=== PATIENT | female | born 1985 | race Two or more races ===

== ENCOUNTER 2024-07-21 16:44 | Emergency (ER) | payer MEDICAID, SELFPAY ==
[2024-07-21 16:45] VITALS: BMI 24.9
--- NOTE | 2024-07-21 17:32 | XR_ITS ---
Examination: Breast ultrasound, unilateral, right Date and time of exam: July 22, 1999 2517.9 hours Indications: Right nipple pain redness and swelling 1 week, no family history breast cancer Technique: Real-time michael scale ultrasonographic imaging performed right breast including all 4 quadrants as well as nipple retroareolar and axillary region. Findings: 2:00 oval mass lobular margins 11 x 5 x 11 m Retroareolar hypoechoic area 2.8 x 1.1 x 1.8 cm most consistent with abscess Impression: BI-RADS Category 3: Probably benign findings Follow-up is needed to confirm resolution or decrease in size of retroareolar probable abscess and 2 exclude the possibility of inflammatory breast cancer 3-D 6 month follow-up is also needed to document stability of 2:00 nodule right breast described above
--- NOTE | 2024-07-21 17:32 | PD.EDRME ---
Rapid Medical Screening Exam RME Arrival date/time: 07/21/24 16:44 38-year-old female with no known medical history presents to the emergency room with a chief complaint of swelling and tenderness around the right breast areola. Patient states she was seen by her primary care provider an hour ago and was sent to the emergency room for an ultrasound. I have greeted and performed a focused initial assessment of this patient. A comprehensive ED assessment and evaluation of the patient, analysis of all test results, and completion of the medical decision making process will be conducted by additional ED providers. Chief Complaint: General Adult/Misc Complain Vital signs reviewed by provider: Yes
[2024-07-21 17:36] VITALS: BP 108/69; PULSE 76; RESP 16; TEMP 36.8; O2SAT 99
--- NOTE | 2024-07-21 20:05 | PD.EDSKIN ---
ED Skin Abcess FB-RME/HPI General Chief complaint: General Adult/Misc Complain Stated complaint: SENT BY ENDY L BREAST REDNESS/SWELLING/ PAIN Time Seen by Provider: 07/21/24 18:27 Arrival date/time: 07/21/24 16:44 RME / HPI RME / HPI narrative: 07/21/24 16:44 38-year-old female with no known medical history presents to the emergency room with a chief complaint of swelling and tenderness around the right breast areola. Patient states she was seen by her primary care provider an hour ago and was sent to the emergency room for an ultrasound. I have greeted and performed a focused initial assessment of this patient. A comprehensive ED assessment and evaluation of the patient, analysis of all test results, and completion of the medical decision making process will be conducted by additional ED providers. This section includes all my notes and documentations, including HPI, PE, and ED course. Gerardo Stone MD HPI: 38-year-old female here with right breast/nipple area with redness and swelling and warmth and pain. No fever or chills. No other complaints. ROS: All negative except as documented in HPI. Physical Exam: General: Alert and oriented. Eyes: Conjunctivae and lids clear. ENT: No nasal congestion. Neck: Supple. Lungs: No respiratory distress. Skin: Warm and dry. Neuro: Alert and oriented X 3. Right breast: Around the nipple area, there is a marble sized area of erythema and edema and calor and tenderness and equivocal fluctuancy. I reviewed all diagnostic test results. My review of the right breast ultrasound report is right mastitis/abscess. At this point, diagnoses include right mastitis. Treatment here included Augmentin. Recommended a trial of outpatient treatment. Based on my best medical judgment, made decision no further evaluation or treatment indicated at this time. Patient understands and agrees to the discharge instructions customized and printed, see below. Discharge Instructions from Dr. Stone printed for you: 1. After evaluation, you have infection of your right nipple/breast. 2. Augmentin to kill the germs causing the infection. 3. Prednisone to help decrease swelling and inflammation. 4. Apply warm compress throughout the day as much as possible to help the healing process. 5. See a private doctor on 07/23/24 for recheck and further care. Ask to review the official radiology report, to make sure you receive all necessary follow-ups and monitoring. Ask for help until you are completely better. If you don't get better, you may need incision and drainage of the infection. 6. Seek immediate medical care with fever, worsening, or with any concerns. Geradro Stone MD Related Data Home Medications ?Medication ?Instructions ?Recorded ?Confirmed ferrous sulfate 325 mg (65 mg 325 mg PO BID 08/25/21 08/25/21 iron) tablet (Iron (ferrous sulfate)) prenat.vits,laina,[id number] 1 tab PO QDAY 08/25/21 08/25/21 Previous Rx's ?Medication ?Instructions ?Recorded benzocaine 20 %-menthol 0.5 % 1 spray topical TID #56 pumps 08/25/21 topical aerosol (Dermoplast (with menthol)) docusate sodium 100 mg capsule 100 mg PO BID #60 caps 08/25/21 (Colace) ibuprofen 800 mg tablet 800 mg PO Q6H PRN pain #90 tabs 08/25/21 lanolin 50 % topical ointment 1 applic topical TID PRN skin 08/25/21 irritation #15 tubes amoxicillin 875 mg-potassium 1 tab PO BID #20 tabs 07/21/24 clavulanate 125 mg tablet prednisone 20 mg tablet 20 mg PO QDAY 5 days #5 tabs 07/21/24 Allergies Allergy/AdvReac Type Severity Reaction Status Date / Time No Known Allergies Allergy Verified 07/21/24 16:45 Course Quality Measures none Orders Category Date Time Status US breast RT complete Stat Exams 07/21/24 17:32 Completed Amoxicillin/Pot Clav 875 [Augmentin 875] Med 07/21/24 20:06 Discontinued 1 tab PO X1 ONE Vital Signs Vital signs: Vital Signs Temperature 98.2 F 07/21/24 17:36 Pulse Rate 76 07/21/24 17:36 Respiratory Rate 16 07/21/24 17:36 Blood Pressure 108/69 07/21/24 17:36 Pulse Oximetry (%) 99 07/21/24 17:36 Oxygen Delivery Method Room Air 07/21/24 17:36 Skin / Abscess / Foreign Body Patient data [facility] Clinical information provided by:: patient Social determinants that could affect healthcare access:: none Patient has the following chronic illnesses:: None How is presenting disease/condition affected by chronic disease/condition?: no chronic disease Evaluation data The following diagnostics were reviewed and interpreted by me:: radiology exam(s) Lab and/or radiology exams considered but not ordered:: None Interpretation Summary: Right mastitis Medications / Prescriptions Medications or Prescriptions considered but not ordered:: None Medication administrations:: Medication Administration History Discontinued Medications Amoxicillin/Clavulanate Potassium (Amoxicillin/Pot Clav 875 Tablet) 1 tab PO X1 ONE Stop: 07/21/24 20:07 Augmentin Consultations Consultation(s) initiated? (list below): No Diagnosis Skin/Abscess Differential Diagnosis: abscess of skin or subcutaneous tissue, cellulitis and contact dermatitis Most likely diagnosis given after review of the tests above:: Right mastitis Admission Indicated Admission indicated?: not indicated Explain why admission is indicated or not indicated:: There was no indication for admission. Admission Request Was there a request for admission?: No Disposition Plan Disposition Plan: Discharge Discharge Attestation Discharge Attestation: The patient and all family members were given an opportunity to ask questions and understood the discharge instructions. Discharge instructions specifically effects, indications for sooner follow up or return to the emergency department, and the expected course of current diagnosis. Patient condition: Stable Discharge Plan Plan Patient Disposition: HOME (Self Care) Prescriptions/Referrals Prescriptions/Med Rec: New prednisone 20 mg tablet 20 mg PO QDAY 5 Days Qty: 5 0RF Taper: Prednisone Taper 20 mg DAILY for 2 Days and 0 Hour 10 mg DAILY for 2 Days and 0 Hour 5 mg DAILY for 7 Days and 0 Hour amoxicillin-pot clavulanate 875-125 mg tablet 1 tab PO BID Qty: 20 0RF No Action ferrous sulfate [Iron (ferrous sulfate)] 325 mg (65 mg iron) Tablet 325 mg PO BID prenat.vits,laina,[id number] Tablet 1 tab PO QDAY Dermoplast (with menthol) 20-0.5 % aerosol 1 spray topical TID Qty: 56 0RF ibuprofen 800 mg tablet 800 mg PO Q6H MDD 4 PRN (Reason: pain) Qty: 90 0RF docusate sodium [Colace] 100 mg capsule 100 mg PO BID Qty: 60 0RF lanolin 50 % ointment 1 applic topical TID PRN (Reason: skin irritation) Qty: 15 0RF Referrals: No Primary/Family,Physician [Primary Care Provider] - In 1 week Problem List Clinical Impression: Acute mastitis of right breast Patient/Caregiver Discharge Instructions Discharge Activity: activity as tolerated Education Materials: ED Mastitis Additional Instructions: Discharge Instructions from Dr. Stone printed for you: 1. After evaluation, you have infection of your right nipple/breast. 2. Augmentin to kill the germs causing the infection. 3. Prednisone to help decrease swelling and inflammation. 4. Apply warm compress throughout the day as much as possible to help the healing process. 5. See a private doctor on 07/23/24 for recheck and further care. Ask to review the official radiology report, to make sure you receive all necessary follow-ups and monitoring. Ask for help until you are completely better. If you don't get better, you may need incision and drainage of the infection. 6. Seek immediate medical care with fever, worsening, or with any concerns. Print Language: Bengali Stand Alone Forms: Marlena Award Info., Patient Portal Info Letter
[2024-07-21] MEDS: AMOXICILLIN/POT CLAV 875 TABLET 1 TAB PO (20:43)
== END 2024-07-21 20:50 | disposition home or self-care (01) ==
PROVIDERS: Emergency Provider Emergency Medicine
DX: N61.0 Mastitis without abscess (principal)
CPT/HCPCS: 76641; 99284; A9270

== ENCOUNTER → 2024-11-20 | Outpatient (CLI) | payer MEDICAID, SELFPAY ==
--- NOTE | 2024-11-20 12:30 | XR_ITS ---
Examination: Complete OB ultrasound greater than 14 weeks Date and time of exam: November 20, 2024 1250 hours INDICATIONS: Supervision of normal second trimester . Findings: Viable intrauterine single fetus with single amniotic sac presentation cephalic Cardiac motion 137 BPM. Placenta anterior grade 1. Umbilical cord insertion 3 vessel seen. spine anterior Cervix 4.1 cm Right ovary 2.0 cm arterial flow Left ovary 2.1 cm arterial flow. Composite estimated gestational age based on BPD, head circumference, abdominal circumference, femur length is 23 weeks 3 days, estimated weight 638 g. Survey of intracranial anatomy, spinal anatomy, abdominal anatomy, four-chamber heart performed with no abnormalities identified. Impression: Viable intrauterine gestation cephalic presentation.
== END | disposition home or self-care (01) ==
LOC: CDIM 12:27
PROVIDERS: PCP Nurse Practitioner Family; Referring Provider Obstetrics & Gynecology; Visit Provider Obstetrics & Gynecology
DX: Z34.92 Encounter for supervision of normal pregnancy, unspecified, second trimester (principal)
CPT/HCPCS: 76805

== ENCOUNTER 2025-02-18 09:46 | Outpatient (AMB) | payer MEDICAID, SELFPAY ==
[2025-02-18 09:54] VITALS: BP 107/66; PULSE 92; RESP 18; TEMP 36.3; O2SAT 98; BMI 29.1
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
== END 2025-02-18 10:40 | disposition home or self-care (01) ==
LOC: HODSOBC 09:46
PROVIDERS: Supervising Provider Advanced Practice Midwife; Visit Provider Advanced Practice Midwife
DX: O09.523 Supervision of elderly multigravida, third trimester (principal); Z3A.35 35 weeks gestation of pregnancy
CPT/HCPCS: 99215; G0463

== ENCOUNTER 2025-03-05 08:45 | Outpatient (AMB) | payer MEDICAID, SELFPAY ==
[2025-03-05 09:00] VITALS: BP 106/72; PULSE 74; RESP 18; TEMP 36.1; O2SAT 98; BMI 29.4
--- NOTE | 2025-03-05 09:00 | AMB.OBPNC ---
Vital Signs 03/05/25 09:00 Height 1.63 m Height Method Stated Weight 78.131 kg Weight Measurement Method Standing Scale BMI 29.4 BP 106/72 Blood Pressure Source Automatic Cuff Blood Pressure Location Right Upper Arm Position Sitting Respiration 18 Pulse 74 Pulse Source Monitor Temp 97 F Temp Source Temporal Artery Scan Pulse Oximetry (%) 98 Oxygen Delivery Method Room Air Allergies/Home Meds Allergies & Medications Allergies No Known Allergies Allergy (Verified 03/05/25 09:02) Medication Reconciliation ferrous sulfate 325 mg (65 mg iron) tablet (Iron (ferrous sulfate)) 325 mg PO BID 08/25/21 [History Confirmed 03/05/25] prenat.vits,laina,[id number] 1 tab PO QDAY 08/25/21 [History Confirmed 03/05/25] Immunizations Immunizations Flu Vaccine in the Last 12 Months: No Flu Vaccine Exclusion Criteria: No Exclusion Criteria Care OB Visit Log OB Flowsheet Initial Weight: Not Recorded Date <del>?</del> EGA Weight BP Alb Glu CTX Pres Fundal ht FHR Mov Dilation Station Effacement Hx Notes Visit Note 02/18/25 <del>?</del> 35w 0d 77.337 kg 107/66 absent cephalic 35 136 active She started 39-year-old 4 para 3 for OBI. Patient is a transfer from Dr. Olvera's office. She brought her records. Reports movement. Denies leaking, bleeding, contractions call for sono results from [facility]. continue PNV, GBS nv, review history and labs. discuss ptl precaution, schedule sono for growth, rtc 2 week obc 03/05/25 <del>?</del> 37w 1d 78.131 kg 106/72 absent cephalic 37 143 Reports good movement. Denies leaking, bleeding pressure is present., Increased contractions that are regular. GBS today. Discussed labor precautions. Kick count twice a day. Discussed danger signs symptoms and ER precautions. Return in a week OB check ELIGIO Calculator Estimated Delivery Date Method Current WG Current Estimate 03/25/25 LMP (Certain) 37w 1d Other Estimates 03/16/25 Ultrasound #1 38w 3d Notes Visit Date: 02/18/25 Last Updated by: Janneth Calloway CNM 39 yo . EDC: 03/27/25. LMP: 06/18/24 OB panel: O+,abs-, rpr;;nr, rub imm, hbsag-,hiv-,gc/ct-, NIPT and carrier screen-, . 1 hr GTT: 156/3 hr gtt wnl Office Procedures OBC Clinic LOC & Office Proc's Nursing/Assessment Patient Status: Established Patient OB Clinic Nursing Assessment: Medication Reconciliation, Update PMH in EMR and Vital Signs OB Clinic Coordination of Care: Complex Care and Chronic Disease 1-5, Education Complex Pt/Fam, Consent,records obtained, informed consent, Lab and Imaging orders, Results/Orders obtained and Staff clarify orders Special Needs: Heart tones Miscellaneous Interventions: Culture Specimen Collection Established Patient Charge Established Patient Point Assignment: 155 Established Patient Point Charge: EP Level 4 (120-155) Assessment & Plan Diagnosis / Problem List (1) Advanced maternal age (AMA) in : Status: Acute (2) Encounter for supervision of high risk in third trimester, antepartum: Status: Acute Plan Discussed labor precautions. Kick count twice a day. GBS today. Reviewed labs. And discussed danger signs symptoms. Return in a week OB check Additional Plan Follow Up: 1 Week (obc)
== END 2025-03-05 10:11 | disposition home or self-care (01) ==
LOC: HODSOBC 08:45
PROVIDERS: Supervising Provider Advanced Practice Midwife; Visit Provider Advanced Practice Midwife
DX: O09.523 Supervision of elderly multigravida, third trimester (principal); Z3A.37 37 weeks gestation of pregnancy; Z36.85 Encounter for antenatal screening for Streptococcus B
CPT/HCPCS: 99214; G0463

== ENCOUNTER 2025-03-11 11:16 | Outpatient (AMB) | payer MEDICAID, SELFPAY ==
[2025-03-11 11:49] VITALS: BP 109/71; PULSE 75; RESP 18; TEMP 36.4; O2SAT 98; BMI 29.4
--- NOTE | 2025-03-11 11:49 | OBCLNT_ITS ---
Vital Signs 03/11/25 11:49 Height 1.63 m Height Method Stated Weight 78.245 kg Weight Measurement Method Standing Scale BMI 29.4 BP 109/71 Blood Pressure Source Automatic Cuff Blood Pressure Location Right Upper Arm Position Sitting Respiration 18 Pulse 75 Pulse Source Monitor Temp 97.6 F Temp Source Temporal Artery Scan Pulse Oximetry (%) 98 Oxygen Delivery Method Room Air Allergies/Home Meds Allergies & Medications Allergies No Known Allergies Allergy (Verified 03/11/25 12:07) Medication Reconciliation ferrous sulfate 325 mg (65 mg iron) tablet (Iron (ferrous sulfate)) 325 mg PO BID 08/25/21 [History Confirmed 03/11/25] prenat.vits,laina,[id number]-xfmea 1 tab PO QDAY 08/25/21 [History Confirmed 03/11/25] Immunizations Immunizations Flu Vaccine in the Last 12 Months: No Flu Vaccine Exclusion Criteria: No Exclusion Criteria Care OB Visit Log OB Flowsheet Initial Weight: Not Recorded Date -?-?-?-?-?-?-?-?-?-?-?-?- EGA Weight BP Alb Glu CTX Pres Fundal ht FHR Mov Dilation Station Ef facement Hx Notes Visit Note 02/18/25 -?-?-?-?-?-?-?-?-?-?-?-?- 35w 0d 77.337 kg 107/66 absent cephalic 35 136 active She started 39-year-old 4 para 3 for OBI. Patient is a transfer from Dr. Olvera's office. She brought her records. Reports movement. Denies leaking, bleeding, contractions call for sono results from [facility]. continue PNV, GBS nv, review history and labs. discuss ptl precaution, schedule sono for growth, rtc 2 week obc 03/05/25 -?-?-?-?-?-?-?-?-?-?-?-?- 37w 1d 78.131 kg 106/72 absent cephalic 37 143 Reports good movement. Denies leaking, bleeding pressure is present., Increased contractions that are regular. G BS today. Discussed labor precautions. Kick count twice a day. Discussed danger signs symptoms and ER precautions. Return in a week OB check 03/11/25 -?-?-?-?-?-?-?-?-?-?-?-?- 38w 0d 78.245 kg 109/71 absent cephalic 38 145 active Fetus active. Reports occasional pressure. Denies leaking or bleeding GBS negative. Discussed labor precautions and kick count. Discussed ER precautions. Patient will call [facility] to schedule an appointment ELIGIO Calculator Estimated Delivery Date Method Current WG Current Estimate 03/25/25 LMP (Certain) 38w 0d Other Estimates 03/16/25 Ultrasound #1 39w 2d 03/25/25 Manual 38w 0d final eligio :03/16 Notes Visit Date: 03/11/25 Last Updated by: Janneth Calloway CNM GBS- Visit Date: 02/18/25 Last Updated by: Janneth Calloway CNM 39 yo . EDC: 03/27/25. LMP: 06/18/24 OB panel: O+,abs-, rpr;;nr, rub imm, hbsag-,hiv-,gc/ct-, NIPT and carrier screen-, . 1 hr GTT: 156/3 hr gtt wnl Office Procedures OBC Clinic LOC & Office Proc's Nursing/Assessment Patient Status: Established Patient OB Clinic Nursing Assessment: Medication Reconciliation, Update PMH in EMR and Vital Signs OB Clinic Coordination of Care: Complex Care and Chronic Disease 1-5, Education Complex Pt/Fam, Consent,records obtained, informed consent, Lab and Imaging orders, Results/Orders obtained and Staff clarify orders Special Needs: Heart tones Established Patient Charge Established Patient Point Assignment: 140 Established Patient Point Charge: EP Level 4 (120-155) Assessment & Plan Diagnosis / Problem List (1) Advanced maternal age (AMA) in : Status: Acute (2) Encounter for supervision of high risk in third trimester, antepartum: Status: Acute Plan Labor precautions. Kick count twice a day. Discussed ER precautions. Patient will follow-up with [facility] to schedule ultrasound. Return in week OB check Additional Plan Follow Up: 1 Week (obc)
== END 2025-03-11 12:06 | disposition home or self-care (01) ==
LOC: HODSOBC 11:16
PROVIDERS: Supervising Provider Advanced Practice Midwife; Visit Provider Advanced Practice Midwife
DX: O09.523 Supervision of elderly multigravida, third trimester (principal); Z3A.38 38 weeks gestation of pregnancy
CPT/HCPCS: 99214; G0463

== ENCOUNTER 2025-03-18 09:49 | Observation (INO) | payer MEDICAID, SELFPAY ==
[2025-03-18 09:54] VITALS: BMI 29.8
[2025-03-18 10:06] VITALS: BP 117/67; PULSE 86; RESP 16; TEMP 36.7; O2SAT 98
[2025-03-18 10:14] VITALS: BP 117/67; PULSE 86; RESP 16; RESP 98; TEMP 36.7
== END 2025-03-18 10:53 | disposition home or self-care (01) ==
PROVIDERS: Admitting Provider Obstetrics & Gynecology; Visit Provider Obstetrics & Gynecology
DX: O26.853 Spotting complicating pregnancy, third trimester (principal); Z3A.39 39 weeks gestation of pregnancy
CPT/HCPCS: 59025; 59899

== ENCOUNTER 2025-03-18 13:03 | Outpatient (AMB) | payer MEDICAID, SELFPAY ==
[2025-03-18 13:31] VITALS: BP 126/80; PULSE 85; RESP 16; TEMP 36.6; O2SAT 98; BMI 29.6
--- NOTE | 2025-03-18 13:31 | AMB.OBPNC ---
Vital Signs 03/18/25 13:31 Height 1.63 m Height Method Stated Weight 78.698 kg Weight Measurement Method Standing Scale BMI 29.6 BP 126/80 Blood Pressure Source Automatic Cuff Blood Pressure Location Left Upper Arm Position Sitting Respiration 16 Pulse 85 Pulse Source Monitor Temp 98 F Temp Source Oral Pulse Oximetry (%) 98 Oxygen Delivery Method Room Air Allergies/Home Meds Allergies & Medications Allergies No Known Allergies Allergy (Verified 03/18/25 13:35) Medication Reconciliation ferrous sulfate 325 mg (65 mg iron) tablet (Iron (ferrous sulfate)) 325 mg PO BID 08/25/21 [History Confirmed 03/18/25] prenat.vits,laina,hko-orzj-mckwg 1 tab PO QDAY 08/25/21 [History Confirmed 03/18/25] Immunizations Immunizations Flu Vaccine in the Last 12 Months: Yes Flu Vaccine Exclusion Criteria: Already Received Care OB Visit Log OB Flowsheet Initial Weight: Not Recorded Date <del>?</del> EGA Weight BP Alb Glu CTX Pres Fundal ht FHR Mov Dilation Station Effacement Hx Notes Visit Note 02/18/25 <del>?</del> 35w 0d 77.337 kg 107/66 absent cephalic 35 136 active She started 39-year-old 4 para 3 for OBI. Patient is a transfer from Dr. Olvera's office. She brought her records. Reports movement. Denies leaking, bleeding, contractions call for sono results from [facility]. continue PNV, GBS nv, review history and labs. discuss ptl precaution, schedule sono for growth, rtc 2 week obc 03/05/25 <del>?</del> 37w 1d 78.131 kg 106/72 absent cephalic 37 143 Reports good movement. Denies leaking, bleeding pressure is present., Increased contractions that are regular. GBS today. Discussed labor precautions. Kick count twice a day. Discussed danger signs symptoms and ER precautions. Return in a week OB check 03/11/25 <del>?</del> 38w 0d 78.245 kg 109/71 absent cephalic 38 145 active Fetus active. Reports occasional pressure. Denies leaking or bleeding GBS negative. Discussed labor precautions and kick count. Discussed ER precautions. Patient will call [facility] again to schedule an appointment 03/18/25 <del>?</del> 39w 0d 78.698 kg 126/80 absent cephalic 39 145 active Fetus active. Reports increased pressure. Patient had some spotting so she was seen in the labor and delivery today. Bleeding looked like bloody show. Cervix was closed. No contractions and NST reactive Discussed labor precautions. Kick count twice a day. Discussed emergency signs and symptoms and parameters return week OB check ELIGIO Calculator Estimated Delivery Date Method Current WG Current Estimate 03/25/25 LMP (Certain) 39w 0d Other Estimates 03/16/25 Ultrasound #1 40w 2d 03/25/25 Manual 39w 0d final eligio :03/25/25 Notes Visit Date: 03/11/25 Last Updated by: Janneth Calloway CNM GBS- Visit Date: 02/18/25 Last Updated by: Janneth Calloway CNM 39 yo . EDC: 03/27/25. LMP: 06/18/24 OB panel: O+,abs-, rpr;;nr, rub imm, hbsag-,hiv-,gc/ct-, NIPT and carrier screen-, . 1 hr GTT: 156/3 hr gtt wnl Office Procedures OBC Clinic LOC & Office Proc's Nursing/Assessment Patient Status: Established Patient OB Clinic Nursing Assessment: Medication Reconciliation, Update PMH in EMR and Vital Signs OB Clinic Coordination of Care: AMA, Complex Care and Chronic Disease 1-5, Consent,records obtained, informed consent, Education Simp Pt/Fam, 1 Ins Authorization, Lab and Imaging orders, Results/Orders obtained and Staff clarify orders Special Needs: Heart tones Established Patient Charge Established Patient Point Assignment: 170 Established Patient Point Charge: EP Level 5 (160-above) Assessment & Plan Diagnosis / Problem List (1) Advanced maternal age (AMA) in : Status: Acute (2) Encounter for supervision of high risk in third trimester, antepartum: Status: Acute Plan Kick count twice a day. Discussed labor precautions. Discussed emergency precautions. Return in a week OB check Additional Plan Follow Up: 1 Week (obc)
== END 2025-03-18 14:14 | disposition home or self-care (01) ==
LOC: HODSOBC 13:03
PROVIDERS: Supervising Provider Advanced Practice Midwife; Visit Provider Advanced Practice Midwife
DX: O09.523 Supervision of elderly multigravida, third trimester (principal); O09.893 Supervision of other high risk pregnancies, third trimester; O26.853 Spotting complicating pregnancy, third trimester; Z3A.39 39 weeks gestation of pregnancy
CPT/HCPCS: 99215; G0463

== ENCOUNTER 2025-03-20 16:07 | Inpatient (IN) | payer MEDICAID, SELFPAY ==
[2025-03-20 16:10] VITALS: RESP 20
[2025-03-20] MEDS: RINGERS LACTATED 1000 ML 1,000 ML 100 ML IV (16:25)
--- NOTE | 2025-03-20 16:31 | PD.LDHP ---
Documentation for date of: 03/20/25 OB Labor/Induct. HPI History of Present Illness Chief complaint: Active labor : 4 Para: 3 Term pregnancies: 3 pregnancies: 0 Living children: 3 History of Abortions: Spontaneous and Elective: 0 History of sections: No History of : No ELIGIO: 03/25/25 Gestational Age (weeks): 39 Gestational Age (days): 2 History of present illness: Patient is a 39-year-old 4 para 3-0-0-3 at 39 weeks and 2 days estimated due date of 03/25/2025 who presented to labor and delivery triage with contractions. On presentation she was noted to be 8 cm dilated. Patient received care with CNM at the [facility] [facility] clinic. She denies any leakage of fluid or vaginal bleeding. She reports movements. records were reviewed as scanned in the chart Review of Systems Review of Systems Systems Reviewed: All systems reviewed, normal except as documented Past Medical History Surgical History SURGICAL: Negative Section Meds Home Medications and Allergies Home Medications ?Medication ?Instructions ?Recorded ?Confirmed ?Type ferrous sulfate 325 mg (65 mg 325 mg PO BID 08/25/21 03/18/25 History iron) tablet (Iron (ferrous sulfate)) prenat.vits,laina,sku-jqqo-vwlnt 1 tab PO QDAY 08/25/21 03/18/25 History Allergies Allergy/AdvReac Type Severity Reaction Status Date / Time No Known Allergies Allergy Verified 03/18/25 13:35 OB Exam Constitutional Constitutional: no acute distress Routine HEENT Exam Head: Present normocephalic and atraumatic Eye: Present EOMI and PERRL ENT: Present mucous membranes moist Routine Neck Exam Neck: Present supple and trachea midline Routine Cardiovascular Exam Cardiovascular: Present RRR Routine Abdominal Exam Abdominal: Present soft and normoactive bowel sounds Detailed Labor and Delivery Exam Dilation (cm): 8 Effacement (%): 100 Cervix position: mid station: 0 Consistency: soft Presentation: Vertex Baseline heart rate: 145 monitor accelerations: 15x15 monitor decelerations: None Contraction frequency (min): 3 Routine Extremities Exam Extremities: Present full ROM Routine Skin Exam Skin: Present intact, dry and warm Routine Neurological Exam Neurological: Present alert, oriented X3 and CN II-XII intact Routine Psychiatric Exam Psychiatric: Present normal affect and normal thought process OB Assessment & Plan Assessment and Plan (1) Advanced maternal age (AMA) in : Status: Acute (2) Encounter for supervision of high risk in third trimester, antepartum: Status: Acute Assessment and plan: Admit to inpatient status IV access, LR at 125 cc/h, CBC, type and screen, RPR Group B strep negative Anticipate vaginal delivery soon
[2025-03-20 16:39] VITALS: BMI 38.5
[2025-03-20 16:44] VITALS: BMI 29.5
[2025-03-20 17:24] LABS: Basophils # (Auto) 0.0 Thou/mm3 (0.0-0.2); Basophils % (Auto) 0 % (0-2.5); Eosinophils # (Auto) 0.0 Thou/mm3 (0.0-0.5); Eosinophils % (Auto) 0 % (0-10); Hematocrit 40.6 % (36.0-46.0); Hemoglobin 14.1 g/dL (12.0-16.0); Immature Granulocytes Auto 0.05 Thou/mm3 (0.00-0.00); Lymphocytes # (Auto) 2.2 Thou/mm3 (1.0-4.8); Lymphocytes % (Auto) 20 % (10-50); Mean Corpuscular HGB Conc 34.7 g/dl (31.0-37.0); Mean Corpuscular Hemoglobin 32.9 pg (25.0-35.0); Mean Corpuscular Volume 95 fL (80-100); Monocytes # (Auto) 0.5 Thou/mm3 (0.0-0.8); Monocytes % (Auto) 5 % (0-12); Neutrophils # (Auto) 8.0 Thou/mm3 (1.8-7.7); Neutrophils % (Auto) 74 % (37-80); Nucleated Red Blood Cell # 0.00 Thou/mm3 (0.00-0.00); Nucleated Red Blood Cell % 0 /100 WBC (0); Platelet Count 221 Thou/mm3 (140-440); RDW Standard Deviation 44.0 fL (36.4-46.3); Red Blood Count 4.28 Miln/mm3 (4.00-5.20); White Blood Count 10.7 Thou/mm3 (3.6-11.0)
[2025-03-20] MEDS: MINERAL OIL 30 ML UDC TOP (17:40)
[2025-03-20 17:45] VITALS: RESP 20; TEMP 36.9
[2025-03-20] MEDS: OXYTOCIN in NS 20 units 20 UNIT/1,000 ML BAG 125 UNIT IV (17:45)
[2025-03-20] MEDS: LIDOCAINE HCL 1% 20 ML VIAL INFL (17:46)
[2025-03-20 18:00] LABS: Syphilis Nonreactive (Nonreactive)
--- NOTE | 2025-03-20 18:03 | PD.LDDELS ---
Data ([place]) Data Hx Section: No : 4 Term: 3 : 0 Livin Abortions: Spontaneous & Theraputic: 0 Delivery Data ([place]) Labor Data Initiation of labor: Spontaneous Induction/Augmentation Agent: None ROM date: 03/20/25 ROM time: 17:39 Delivery Data EDC: 03/25/25 EDC calculated by:: LMP/early US confirmation Onset of labor date: 03/20/25 Onset of labor time: 16:00 Complete dilation date: 03/20/25 Complete dilation time: 17:39 delivery date: 03/20/25 delivery time: 17:45 Gestational age (weeks): 39 Gestational age (days): 2 Placenta delivery date: 03/20/25 Placenta delivery time: 17:50 Stage 1 total time: Labor - Stage 1 Duration 1 hours and 39 minutes Delivered by: Devendra Ruffin Delivery nurse: Shen Werner RN Police Clerk at delivery: No Support person(s) at delivery: fob Delivery Method Delivery method: Normal Vaginal Delivery Presentation: Vertex position: OA Anesthesia Type Anesthesia Type: None Placenta Placenta delivery description: Spontaneous Cord blood sent to lab: Yes cord blood collection: Cord Blood Type Lacerations #1: Perineal: 2nd degree Perineal repair Sutures used for repair: 3.0 Chromic EBL Estimated blood loss (ml): 150 Umbilical Cord cord description: 3 Vessels Complications Complications: None [place] Data ([place]) Data order: 1 [place]'s gender: Male Identification band number: [id number] weight (gms): 8 lb 15.741 oz Weight (pounds): 8 lbs and 15.7 ozs length: 19.88 in 1 minute: 8 5 minutes: 9
--- NOTE | 2025-03-20 18:05 | PD.LDDS ---
DS: Providers Provider Date of admission: 03/20/25 16:07 Primary care physician: Physician No Primary/Family Admitting Provider: Shashi Lerma MD Attending Provider on Admission: Shashi Lerma MD Attending Provider on DC: Devendra Ruffin MD Discharging Provider: Devendra Ruffin MD DS: Diagnosis Discharge Diagnosis (1) Multigravida: Status: Inactive (2) care following vaginal delivery: Status: Inactive Problem List Completed Was Problem List Reviewed/Reconciled?: Yes Summary/Hosp Course Brief History: Patient is a 39-year-old 4 para 3-0-0-3 at 39 weeks and 2 days estimated due date of 03/25/2025 who presented to labor and delivery triage with contractions. On presentation she was noted to be 8 cm dilated. Patient received care with CNM at the [facility] clinic. She denies any leakage of fluid or vaginal bleeding. She reports movements. records were reviewed as scanned in the chart Peripartum Data Delivery Method: Normal Vaginal Delivery Laceration Description: see Delivery Summary complications: none 1: Gender: Male Disposition of : home Time Spent with Patient Time attestation: Total time spent providing and/or coordinating discharge services: Exam Vital Signs Resp 20 03/20/25 16:10 Discharge Plan Plan Patient Disposition: HOME (Self Care) Patient condition on transfer: Stable Prescriptions/Referrals Prescriptions/Med Rec: New ibuprofen 600 mg tablet 600 mg PO Q6H PRN (Reason: pain) Qty: 30 0RF No Action ferrous sulfate [Iron (ferrous sulfate)] 325 mg (65 mg iron) Tablet 325 mg PO BID prenat.vits,laina,ywr-nywk-ymjsz Tablet 1 tab PO QDAY Referrals: No Primary/Family,Physician [Primary Care Provider] Patient/Caregiver Discharge Instructions Discharge Activity: activity as tolerated Other Discharge Activity Instructions:: Follow up office 6 week. Print Language: Turkish Stand Alone Forms: Marlena Award Info., Patient Portal Info Letter, Work/Release Restrictions Planned Discharge Date 03/21/25
[2025-03-20] MEDS: BENZO/LANO/ALOE (Dermoplast) 60 GM CAN 1 SPRAY TOP (18:08)
[2025-03-20 18:11] VITALS: BP 111/68; PULSE 93
[2025-03-20 19:51] VITALS: BP 122/60; PULSE 96
[2025-03-21 00:05] LABS: Basophils # (Auto) 0.0 Thou/mm3 (0.0-0.2); Basophils % (Auto) 0 % (0-2.5); Eosinophils # (Auto) 0.0 Thou/mm3 (0.0-0.5); Eosinophils % (Auto) 0 % (0-10); Hematocrit 33.3 % (36.0-46.0); Hemoglobin 11.6 g/dL (12.0-16.0); Immature Granulocytes Auto 0.06 Thou/mm3 (0.00-0.00); Lymphocytes # (Auto) 1.2 Thou/mm3 (1.0-4.8); Lymphocytes % (Auto) 8 % (10-50); Mean Corpuscular HGB Conc 34.8 g/dl (31.0-37.0); Mean Corpuscular Hemoglobin 33.0 pg (25.0-35.0); Mean Corpuscular Volume 95 fL (80-100); Monocytes # (Auto) 0.8 Thou/mm3 (0.0-0.8); Monocytes % (Auto) 5 % (0-12); Neutrophils # (Auto) 13.3 Thou/mm3 (1.8-7.7); Neutrophils % (Auto) 86 % (37-80); Nucleated Red Blood Cell # 0.00 Thou/mm3 (0.00-0.00); Nucleated Red Blood Cell % 0 /100 WBC (0); Platelet Count 202 Thou/mm3 (140-440); RDW Standard Deviation 44.1 fL (36.4-46.3); Red Blood Count 3.52 Miln/mm3 (4.00-5.20); White Blood Count 15.4 Thou/mm3 (3.6-11.0)
[2025-03-21] MEDS: IBUPROFEN TAB 400 MG TABLET 800 MG PO ×2 (03:19→14:37)
[2025-03-21 03:56] VITALS: BP 112/76; PULSE 89; RESP 16; TEMP 36.5; O2SAT 97
[2025-03-21 08:55] VITALS: BP 110/70; PULSE 88; RESP 20; TEMP 36.6; O2SAT 99
[2025-03-21] MEDS: ACETAMINOPHEN 325 MG TABLET 650 MG PO (09:02)
[2025-03-21 11:36] VITALS: BP 111/71; PULSE 79; RESP 18; TEMP 36.6; O2SAT 98
--- NOTE | 2025-03-21 14:16 | ESDS_ITS ---
DS: Providers Provider Date of admission: 03/20/25 16:07 Primary care physician: Physician No Primary/Family Admitting Provider: Shashi Lerma MD Attending Provider on Admission: Shashi Lerma MD Consults: 03/20/25 18:26 Referral Routine Comment: Attending Provider on DC: Marly Penny MD Discharging Provider: Marly Penny MD DS: Diagnosis Discharge Diagnosis (1) state: Status: Acute (2) Encounter for supervision of high risk in third trimester, a ntepartum: Status: Acute (3) Advanced maternal age (AMA) in : Status: Acute Problem List Completed Was Problem List Reviewed/Reconciled?: Yes Summary/Hosp Course Brief History: Patient is a 39-year-old 4 para 3-0-0-3 at 39 weeks and 2 days estimated due date of 03/25/2025 who presented to labor and delivery triage with contractions. On presentation she was noted to be 8 cm dilated. Patient received care with CNM at the [facility] [employer] clinic. She denies any leakage of fluid or vaginal bleeding. She reports movements. records were reviewed as scanned in the chart Peripartum Data Delivery Method: Normal Vaginal Delivery Time Spent with Patient Time attestation: Total time spent providing and/or coordinating discharge services: Exam Vital Signs Temp Pulse Resp BP Pulse Ox O2 Del Method 97.9 F 79 18 111/71 98 Room Air 03/21/25 11:36 03/21/25 11:36 03/21/25 11:36 03/21/25 11:36 03/21/25 11:36 03/21/25 11:36 Narrative Exam Patient has no/ complaints Headache no Blurry vision no Chest pain no Palpitations no Shortness of breath no Nausea or vomiting or constipation no Back pain no Dysuria no Dizziness no calf pain no She is voiding spontaneously Passing flatus yes Lochia minimal yes alert x3 chest clear CVS RRR NO thyromegaly Uterus is nontender Uterus is firm/ appropriate size Just below the umbilicus Bowel sounds present Abdomen soft no hernias noted/no CVAT No calf tenderness Edema mild Discharge Plan Plan Patient Disposition: HOME (Self Care) Patient condition on transfer: Stable Prescriptions/Referrals Prescriptions/Med Rec: New ibuprofen 600 mg tablet 600 mg PO Q6H PRN (Reason: pain) Qty: 30 0RF No Action ferrous sulfate [Iron (ferrous sulfate)] 325 mg (65 mg iron) Tablet 325 mg PO BID prenat.vits,laina,nym-gbed-xzsuc Tablet 1 tab PO QDAY Referrals: No Primary/Family,Physician [Primary Care Provider] Patient/Caregiver Discharge Instructions Discharge Activity: activity as tolerated Other Discharge Activity Instructions:: Follow up office 6 week./ pelvic rest x 6 weeks Education Materials: After a Vaginal , Breast Care After Print Language: Bermudian Activity Restrictions/Additional Instructions: follow up in 6 weeks Stand Alone Forms: Marlena Award Info., Patient Portal Info Letter, Work/Release Restrictions Discharge Order Discharge Orders: Discharge (Routine); Ordered 03/21/25 Ordered By: Marly Penny Planned Discharge Date 03/21/25
[2025-03-21 16:17] VITALS: BP 111/73; PULSE 79; RESP 17; TEMP 36.7; O2SAT 98
== END 2025-03-21 18:15 | disposition home or self-care (01) | DRG 560 ==
LOC: S4SX 18:01 → S4NX 03-21 14:16 → S4SX 03-23 06:16
PROVIDERS: Specialist; Admitting Provider Obstetrics & Gynecology; Visit Provider Obstetrics & Gynecology
DX: O70.1 Second degree perineal laceration during delivery (principal); Z3A.39 39 weeks gestation of pregnancy; Z37.0 Single live birth
CPT/HCPCS: 36415; 59025; 59409; 59899; 85025; 86780; 86850; 86900; 86901; J2590; J3490; J7120; A9270